=== PATIENT | male | born 1955 | race Caucasian/White ===

== ENCOUNTER → 2022-03-27 | Outpatient (CLI) | payer MEDICARE ==
--- NOTE | 2022-03-27 11:39 | XR ---
EXAMINATION TYPE: XR KUB DATE OF EXAM: 03/27/2022 COMPARISON: NONE HISTORY: Pain TECHNIQUE: One view abdominal series FINDINGS: The osseous structures are intact. The bowel gas pattern is nonspecific. Hypertrophic and degenerati ve changes spine. Arthropathy of the hips. There is a 4 mm lower pole right renal calculus. There is a 8 mm upper pole left renal calculus. IMPRESSION: 1. Nonspecific abdomen. 2. Bilateral nephrolithiasis as measured above.
== END | disposition home or self-care (01) ==
LOC: RADXRMAIN 10:47
PROVIDERS: ATTEND Urology
DX: N20.0 Calculus of kidney (principal)
CPT/HCPCS: 74018

== ENCOUNTER → 2022-05-08 | Outpatient (CLI) | payer MEDICARE ==
[2022-05-08 11:12] LABS: Appearance,Urine Clear (Clear); Bilirubin,Urine Negative (Negative); Blood,Urine Negative (Negative); Color,Urine Yellow; Glucose,Urine (UA) Negative (Negative); Ketones,Urine Negative (Negative); Leukocyte Esterase,Urine Negative (Negative); Nitrite,Urine Negative (Negative); PH, Urine 5.5 (5.0-8.0); Protein,Urine Negative (Negative); Urobilinogen,Urine <2.0 mg/dL (<2.0)
[2022-05-08 14:52] LABS: Basophils # (A) 0.08 X 10*3/uL (0.00-0.10); Basophils % (A) 1.3 %; Eosinophils # (A) 0.07 X 10*3/uL (0.04-0.35); Eosinophils % (A) 1.2 %; HCT 47.8 % (39.6-50.0); Immature Grans, Automated 0.2 %; Lymphocytes # (A) 1.51 X 10*3/uL (0.90-5.00); Lymphocytes % (A) 24.9 %; MCH 31.3 pg (27.0-32.0); MCHC 33.5 g/dL (32.0-37.0); MCV 93.4 fL (80.0-97.0); Mean Platelet Volume 11.2 fL (9.5-12.2); Monocytes # (A) 0.49 X 10*3/uL (0.20-1.00); Monocytes % (A) 8.1 %; NRBC Per 100 WBC 0 /100 WBCS (0.0-0.0); Neutrophils # (A) 3.91 X 10*3/uL (1.80-7.70); Neutrophils % (A) 64.3 %; Platelet Count 222 X 10*3/uL (140-440); RBC 5.12 X 10*6/uL (4.40-5.60); RDW 12.3 % (11.5-14.5); WBC 6.07 X 10*3/uL (4.50-10.00)
[2022-05-08 16:31] LABS: African American GFR (CKD) 79.5 (60.0-200.0); Anion Gap 9.4 mmol/L (10.00-18.00); BUN/Creat Ratio 13.09 Ratio (12.00-20.00); Blood Urea Nitrogen 14.4 mg/dL (9.0-27.0); Calcium 9.8 mg/dL (8.7-10.3); Carbon Dioxide 26.6 mmol/L (20.0-27.5); Non-African American GFR(CKD) 68.6 (60.0-200.0); Potassium 4.5 mmol/L (3.5-5.5)
== END | disposition home or self-care (01) ==
LOC: LABPAT 09:49
PROVIDERS: ATTEND Urology
DX: Z01.812 Encounter for preprocedural laboratory examination (principal); N20.1 Calculus of ureter; R31.29 Other microscopic hematuria
CPT/HCPCS: 80048; 81003; 85025; 87086

== ENCOUNTER 2022-05-21 06:13 | Day surgery (SDC) | payer MEDICARE ==
[2022-05-14 11:09] VITALS: BMI 30.2
--- NOTE | 2022-05-20 15:36 | P.GSHP ---
History of Present Illness H&P Date: 05/20/22 66 yo male with a history of stones. LAst month he was at [facility] with a 6 mm left proximal ureteral stone with colic as well as bilateral renal stones. His pain persisted so he wanted surgical treatment. He is set up for a left ureteroscopy with laser lithotripsy - Constitutional Constitutional: Denies chills, Denies fever - EENT Eyes: denies blurred vision, denies pain Ears, nose, mouth and throat: Denies headache, Denies sore throat - Cardiovascular Cardiovascular: Denies chest pain, Denies shortness of breath - Respiratory Respiratory: Denies cough, Denies 7 - Gastrointestinal Gastrointestinal: Denies abdominal pain, Denies diarrhea, Denies nausea, Denies vomiting - Genitourinary (Female) Genitourinary: Denies dysuria, Denies hematuria - Genitourinary (Male) Genitourinary: Denies dysuria, Denies hematuria - Musculoskeletal Musculoskeletal: Denies myalgias - Integumentary Integumentary: Denies pruritus, Denies rash - Neurological Neurological: Denies numbness, Denies weakness - Psychiatric Psychiatric: Denies anxiety, Denies depression - Endocrine Endocrine: Denies fatigue, Denies weight change Past Medical History Past Medical History: Atrial Fibrillation, Osteoarthritis (OA), Prostate Disorder Additional Past Medical History / Comment(s): hx elevated BP-no current medications, kidney stones, History of Any Multi-Drug Resistant Organisms: None Reported Past Surgical History: Orthopedic Surgery, Tonsillectomy Additional Past Surgical History / Comment(s): rt shoulder surgery for dislocation/pin Past Anesthesia/Blood Transfusion Reactions: No Reported Reaction Smoking Status: Former smoker - Past Family History Mother Family Medical History: No Reported History Medications and Allergies Home Medications Medication Instructions Recorded Confirmed Type Glucosam/Chris-Msm1/C/[place]/Bosw 1 each PO DAILY 05/14/22 05/14/22 History [Glucosamine-Chondroitin Tablet] Tamsulosin HCl [Flomax] 0.4 mg PO HS 05/14/22 05/14/22 History Turmeric(Dose Unknown) 1 tab PO DAILY 05/14/22 05/14/22 History Vitamin D(Dose Unknown) 1 tab PO DAILY 05/14/22 05/14/22 History Allergies Allergy/AdvReac Type Severity Reaction Status Date / Time No Known Allergies Allergy Verified 05/14/22 10:58 Surgical - Exam - General well developed, well nourished, no distress - Eyes normal ocular movement, no icteric - ENT no hearing loss, no congestion - Neck no masses, trachea midline - Respiratory normal respiratory effort, clear to auscultation - Abdomen Abdomen: soft, non tender, no guarding, no rigid, no rebound - Integumentary no rash, no abnormal pigmentation - Neurologic no disoriented, no combative - Psychiatric oriented to time, oriented to person, oriented to place, speech is normal, memory intact Results - Imaging Abdominal x-ray: report reviewed, image reviewed CT scan - abdomen: report reviewed, image reviewed CT scan - pelvis: report reviewed, image reviewed Assessment and Plan Assessment: Impression: left ureteral stone with colic. bilateral renal stones. history of afib Plan: left ureteroscopy with laser lithotripsy
[2022-05-21] MEDS ORDERED: ONDANSETRON 4 MG/2 ML VIAL IVP ONE (06:37)
[2022-05-21] MEDS ORDERED: LIDOCAINE 1% (10MG/ML) FOR IV START INTRADERMA PRN (06:37)
[2022-05-21] MEDS ORDERED: LACTATED RINGERS 1,000 ML IV SCH (06:37)
[2022-05-21] MEDS ORDERED: DEXAMETHASONE SOD PHOSPHATE 4 MG/ML 1 ML VIAL IV ONE (06:37)
--- NOTE | 2022-05-21 06:41 | XR ---
EXAMINATION TYPE: XR KUB DATE OF EXAM: 05/21/2022 COMPARISON: 03/27/2022 HISTORY: Abdominal pain TECHNIQUE: Single view FINDINGS: There calculi over the lower pole right kidney and upper pole left kidney that measure up t o 8 mm. No sign of intestinal obstruction or pneumoperitoneum. Fecal pattern is normal. There is a 5 mm calcification in the left paraspinal region at L4-5. IMPRESSION: Left-sided calculus could be in the mid left ureter. Bilateral renal calculi.
[2022-05-21] MEDS ORDERED: HYDROmorphone 0.5 MG/0.5 ML SYRINGE IVP PRN (07:00)
[2022-05-21] MEDS ORDERED: PROPOFOL 10 MG/ML 20 ML VIAL IV ONE (07:20)
[2022-05-21] MEDS ORDERED: LIDOCAINE 2% INJ 20 MG/ML (2 ML VIAL) ONE (07:20)
[2022-05-21] MEDS ORDERED: MIDAZOLAM 2 MG/2 ML VIAL ONE (07:20)
[2022-05-21] MEDS ORDERED: fentaNYL (PF) 50 MCG/ML 2 ML AMP ONE (07:20)
[2022-05-21 08:46] VITALS: TEMP 97
--- NOTE | 2022-05-21 08:47 | FL ---
EXAMINATION TYPE: FL guidance operating room DATE OF EXAM: 05/21/2022 CLINICAL HISTORY: Left ureter stone TECHNIQUE: Fluoroscopy. COMPARISON: None. FINDINGS: Fluoroscopic guidance was provided during left ureter stone treatment procedure with stent insertion performed by Dr. Beatty. A total of 1.26 minute of fluoroscopic time was utilized during t he procedure and 5 spot images was acquired. IMPRESSION: As Above.
--- NOTE | 2022-05-21 08:48 | P.OP ---
Date of Procedure: 05/21/22 Preoperative Diagnosis: Left ureteral and renal stone Postoperative Diagnosis: Same Procedure(s) Performed: Cystoscopy, left ureteroscopy with laser lithotripsy to ureteral and renal stone, stone basketing ureteral stone fragments placement of 6 x 26 double-J cath Anesthesia: BECCA Surgeon: Chan Beatty Estimated Blood Loss (ml): 25 Pathology: other Condition: stable (Stone) Disposition: PACU Indications for Procedure: The patient is 66. He has a 5 mm left midureteral stone that is obstructed. It is not removed. He still has intermittent discomfort. He also has an 8 mm left renal stone. He comes for ureteroscopy laser lithotripsy to the ureteral stone and possibly to the renal stone depending on how the ureteral stone goes. Description of Procedure: Patient brought to the operating suite. Given general anesthesia. Placed lithotomy position with a sterile prep and drape. Cystoscopy Foroblique lens and 21-[place] sheath identifies a normal anterior urethra. He isn't obstructing prostate with a prominent intravesical middle lobe. The ureteral orifices are normal. The bladder mucosa was trabeculated. An 035 wires passed up the ureter by the stone. Over the wires passed 43-53-Spnesi reentry sheath. It is passed up to the stone. There is sheath and wire removed. I passed the flexible scope up to the left ureteral stone and with the 200 laser probe dust the stone into tiny fragments and basket the fragments with a 1.6 stone basket. Since this portion of the technique went easily I then pass the flexible scope up into the left kidney. The larger stone was identified. Again with the 200 probe I thus the stone into tiny fragments. I removed the ureteroscope. I backloaded the cystoscope on the with 35 wire passed into the kidney. I then pass a 6 x 26 double-J catheter up into the left renal pelvis over the wire and coils in the left renal pelvis and the bladder the bladder strain the patient is awake and returned recovery room good condition. He tolerated the procedure well be discharged home upon recovery and follow-up in the office in one week for left ureteral stent removal.
[2022-05-21] MEDS ORDERED: LACTATED RINGERS 1,000 ML IV ONE ×2 (09:00→11:17)
[2022-05-21] MEDS ORDERED: KETOROLAC 15 MG/ML 1 ML VIAL IVP ONE (09:12)
[2022-05-21 13:48] VITALS: BP 168/77; PULSE 65; RESP 16
== END 2022-05-21 14:04 | disposition home or self-care (01) ==
LOC: OR 06:13
PROVIDERS: ATTEND Urology
DX: N20.2 Calculus of kidney with calculus of ureter (principal); I48.91 Unspecified atrial fibrillation; M19.90 Unspecified osteoarthritis, unspecified site; Z87.891 Personal history of nicotine dependence
CPT/HCPCS: 52353; 82365; 74018; C1769; J2250; J1100; J0690; J2405; J3010; J1885; J2704; J1170; J2001

== ENCOUNTER → 2022-06-19 | Outpatient (CLI) | payer MEDICARE ==
--- NOTE | 2022-06-19 08:10 | XR ---
EXAMINATION TYPE: XR KUB DATE OF EXAM: 06/19/2022 7:29 AM INDICATION: Patient age:Male; 66 years old; Reason for study: N20.0 calculus kidney; COMPARISON: None. TECHNIQUE: One radiographic view of the abdomen was obtained. FINDINGS: The bowel gas pattern is nonspecific without dilated loops of small or large bowel. There i s no evidence for organomegaly or pneumoperitoneum. The osseous structures are intact. Contrast proj ects over the right inferior renal pole measuring up to 5 mm and left kidney possibly within the charlene ex measuring up to 6 m. Fecal material and gas are demonstrated throughout the colon and rectum. Mul tilevel disc degeneration changes throughout the spine. IMPRESSION: Bilateral renal calculi measuring up to 5 mm on the right and 6 mm on the left. Nonspecific bowel gas pattern without radiographic evidence for acute process.
== END | disposition home or self-care (01) ==
LOC: RADXRMAIN 07:18
PROVIDERS: ATTEND Urology
DX: N20.0 Calculus of kidney (principal)
CPT/HCPCS: 74018